=== PATIENT | female | born 1960 | race Hispanic/Latino ===

== ENCOUNTER 2024-02-10 15:21 | Inpatient (IN) | payer OTHER ==
[~2024-02-10] VITALS: Ht 165.1 cm; Wt 74.1 kg
[2024-02-10 15:30] VITALS: TEMP 98.7
[2024-02-10 16:10] LABS: BASOPHILS % 0.5 % (0.0-1.0); EOSINOPHILS # (AUTO) 0.2 (0.0-0.4); EOSINOPHILS % 4.2 % (0.0-6.0); HEMATOCRIT 36.1 % (34.2-44.1); HEMOGLOBIN 11.3 g/dL (12.0-16.0); LYMPHOCYTES # (AUTO) 1.2 (1.0-3.2); LYMPHOCYTES % 27.3 % (18.0-39.1); MEAN CORPUSCULAR HEMOGLOBIN 29.6 pg (28-32); MEAN CORPUSCULAR HGB CONC 31.3 g/dL (31-35); MEAN CORPUSCULAR VOLUME 94.5 fL (81-99); MONOCYTES # (AUTO) 0.3 (0.2-0.8); MONOCYTES % 6.8 % (4.4-11.3); NEUTROPHILS # (AUTO) 2.6 (2.1-6.9); NEUTROPHILS % 60.7 % (38.7-80.0); PLATELET COUNT 119 x10e3/uL (140-360); RED BLOOD COUNT 3.82 x10e6/uL (3.6-5.1); RED CELL DISTRIBUTION WIDTH 12.8 % (11.7-14.4); WHITE BLOOD COUNT 4.29 x10e3/uL (4.8-10.8)
[2024-02-10 16:24] LABS: INR 0.97; PROTHROMBIN TIME 13.5 seconds (11.9-14.5)
[2024-02-10] MEDS: ASPIRIN 81 MG CHEW TAB PO ONE (16:28)
[2024-02-10 16:34] LABS: ALBUMIN 3.9 g/dL (3.5-5.0); ALBUMIN/GLOBULIN RATIO 0.9 (0.8-2.0); ANION GAP 15.7 mmol/L (8-16); BILIRUBIN,TOTAL 0.4 mg/dL (0.2-1.2); CALCIUM 9.4 mg/dL (8.4-10.2); POTASSIUM 4.7 mmol/L (3.5-5.1); TOTAL PROTEIN 8.3 g/dL (6.5-8.1)
[2024-02-10 16:40] LABS: TROPONIN I 0.003 ng/mL (0-0.300)
[2024-02-10 17:23] VITALS: PULSE 68; RESP 18
[2024-02-10] MEDS ORDERED: ONDANSETRON HCL INJ 2MG/ML 2ML 2 MG/ML VIAL IV PRN (17:30)
[2024-02-10] MEDS: SODIUM CHLORIDE 0.9% 1000ML 1,000 ML IV SCH (18:01)
[2024-02-10 20:28] VITALS: BP 146/67; PULSE 70; RESP 22; TEMP 98.3; O2SAT 100
[2024-02-10 21:51] VITALS: BP 146/67; PULSE 70; RESP 22; TEMP 98.3; O2SAT 100
[2024-02-10 22:06] VITALS: BP 146/67; PULSE 70; RESP 22; TEMP 98.3; O2SAT 100
[2024-02-10] MEDS ORDERED: TACROLIMUS1 MG PO (23:16)
[2024-02-10] MEDS ORDERED: QUETIAPINE FUMA25 MG PO (23:16)
[2024-02-10] MEDS ORDERED: LEVOTHYROXINE150 MCG PO (23:16)
[2024-02-11] VITALS: BP 143/68; PULSE 69; RESP 16; TEMP 98.2; O2SAT 99
[2024-02-11 04:00] VITALS: BP 138/65; PULSE 69; RESP 18; TEMP 98; O2SAT 100
[2024-02-11] MEDS: Morphine 2mg Syringe 2 MG/ML SYR IV PRN (04:47)
[2024-02-11 06:17] LABS: BASOPHILS % 0.7 % (0.0-1.0); EOSINOPHILS # (AUTO) 0.1 (0.0-0.4); EOSINOPHILS % 5.1 % (0.0-6.0); HEMATOCRIT 26.9 % (34.2-44.1); LYMPHOCYTES % 34.3 % (18.0-39.1); MEAN CORPUSCULAR HEMOGLOBIN 30.4 pg (28-32); MEAN CORPUSCULAR HGB CONC 33.5 g/dL (31-35); MEAN CORPUSCULAR VOLUME 90.9 fL (81-99); MONOCYTES # (AUTO) 0.2 (0.2-0.8); MONOCYTES % 7.9 % (4.4-11.3); NEUTROPHILS # (AUTO) 1.4 (2.1-6.9); NEUTROPHILS % 51.6 % (38.7-80.0); RED BLOOD COUNT 2.96 x10e6/uL (3.6-5.1); RED CELL DISTRIBUTION WIDTH 12.9 % (11.7-14.4); WHITE BLOOD COUNT 2.77 x10e3/uL (4.8-10.8)
[2024-02-11 06:21] LABS: PLATELET COUNT 99 x10e3/uL (140-360)
[2024-02-11 06:37] LABS: ALBUMIN 3.1 g/dL (3.5-5.0); ALBUMIN/GLOBULIN RATIO 0.9 (0.8-2.0); ANION GAP 12.5 mmol/L (8-16); BILIRUBIN,TOTAL 0.3 mg/dL (0.2-1.2); CALCIUM 8.2 mg/dL (8.4-10.2); CREATININE, SERUM 1.7 mg/dL (0.57-1.11); POTASSIUM 4.5 mmol/L (3.5-5.1); TOTAL PROTEIN 6.5 g/dL (6.5-8.1)
[2024-02-11] MEDS ORDERED: QUETIAPINE FUMARATE 25 MG TAB PO PRN (10:00)
[2024-02-11 12:12] VITALS: BP 137/75; PULSE 76; RESP 20; TEMP 98.7; O2SAT 99
[2024-02-11] MEDS ORDERED: TACROLIMUS 0.5 MG CAP PO SCH (17:00)
[2024-02-11 17:05] VITALS: BP 169/54; PULSE 66; RESP 18; TEMP 98.7; O2SAT 100
[2024-02-11] MEDS ORDERED: MINOCYCLINE HC100 MG PO (17:11)
[2024-02-12] MEDS ORDERED: LEVOTHYROXINE SODIUM 50 MCG TAB PO SCH (06:00)
== END 2024-02-11 18:00 | disposition home or self-care (01) | DRG 300 ==
LOC: ER 15:41 → ERHOLD 17:23 → MED/SURG2 19:44
PROVIDERS: ADMIT Internal Medicine; ATTEND Internal Medicine
DX: E11.52 Type 2 diabetes mellitus with diabetic peripheral angiopathy with gangrene (principal); D61.818 Other pancytopenia; I70.261 Atherosclerosis of native arteries of extremities with gangrene, right leg; Z94.4 Liver transplant status; D84.9 Immunodeficiency, unspecified; Z94.0 Kidney transplant status; N17.9 Acute kidney failure, unspecified; E11.621 Type 2 diabetes mellitus with foot ulcer; E11.628 Type 2 diabetes mellitus with other skin complications; E11.65 Type 2 diabetes mellitus with hyperglycemia; L03.031 Cellulitis of right toe; M77.31 Calcaneal spur, right foot; E89.0 Postprocedural hypothyroidism; I10 Essential (primary) hypertension; M19.071 Primary osteoarthritis, right ankle and foot; Z79.890 Hormone replacement therapy; Z85.3 Personal history of malignant neoplasm of breast; F17.200 Nicotine dependence, unspecified, uncomplicated; Z92.21 Personal history of antineoplastic chemotherapy; Z82.49 Family history of ischemic heart disease and other diseases of the circulatory system
CPT/HCPCS: 36415; 71045; 80053; 82550; 82948; 84484; 85025; 85610; 87040; 93005; 93306; 93925; 99284; J2270; J2543; J7030